=== PATIENT | female | born 1995 | race Caucasian/White ===

== ENCOUNTER 2017-12-21 12:54 | Emergency (ER) | payer BC, OTHER, SELFPAY ==
--- NOTE | 2017-12-21 14:37 | RAD ---
PA AND LATERAL CHEST: Date: 12/21/17 HISTORY: Cough. COMPARISON: 04/14/08. FINDINGS: Cardiac silhouette and pulmonary vasculature are within normal limits. There is a nodular density ove rlying the left lung base, but this is most likely related to superimposition of structures, includin g overlapping anterior and posterior ribs, as well as vascular structures. The lungs are otherwise cl ear. Osseous structures are intact. No other interval change. IMPRESSION: No acute cardiopulmonary process. POS: [facility]
== END 2017-12-21 14:12 | disposition home or self-care (01) ==
LOC: SCSER 12:54
DX: R05 Cough (principal); R09.81 Nasal congestion; R50.9 Fever, unspecified; R51 Headache; R06.2 Wheezing; R06.02 Shortness of breath; J02.9 Acute pharyngitis, unspecified; E03.9 Hypothyroidism, unspecified; F32.9 Major depressive disorder, single episode, unspecified
CPT/HCPCS: 71046; 87804

== ENCOUNTER 2018-05-19 09:58 | Emergency (ER) | payer BC, SELFPAY | END 2018-05-19 10:15 | disposition home or self-care (01) | LOC: SCSER 09:58 | DX: N63.0 Unspecified lump in unspecified breast (principal); E03.9 Hypothyroidism, unspecified; F41.9 Anxiety disorder, unspecified | CPT/HCPCS: 99281 ==

== ENCOUNTER 2018-09-04 08:42 | Outpatient (CLI) | payer OTHER ==
--- NOTE | 2018-09-04 11:07 | ULT ---
LEFT BREAST ULTRASOUND: HISTORY: Palpable, painful masses in the upper outer aspect of the left breast. TECHNIQUE: Multiplanar owusu-scale and color Doppler images were obtained in a left breast ultrasound. FINDINGS: Normal appearing breast parenchyma is seen. No suspicious mass or shadowing is seen. No cyst is julio ntified. IMPRESSION: BI-RADS category 1-Negative. Annual screening mammography is recommended at the age of 40. POS: [facility]
== END 2018-09-04 08:43 | disposition home or self-care (01) ==
LOC: BICULT 08:42
PROVIDERS: ATTEND Family Medicine
DX: N63.20 Unspecified lump in the left breast, unspecified quadrant (principal)

== ENCOUNTER 2023-09-06 14:29 | Outpatient (CLI) | payer OTHER | END 2023-09-06 14:30 | disposition home or self-care (01) | LOC: SCSRAD 14:29 | PROVIDERS: ATTEND Nurse Practitioner Family | DX: S69.91XA Unspecified injury of right wrist, hand and finger(s), initial encounter (principal); M79.89 Other specified soft tissue disorders ==